=== PATIENT | male | born 1995 | race Caucasian/White ===

== ENCOUNTER 2024-03-15 10:22 | Emergency (ER) | payer OTHER ==
[~2024-03-15] VITALS: Ht 175.3 cm; Wt 83.9 kg
[2024-03-15 10:33] VITALS: BP 113/70; TEMP 98.2
[2024-03-15] MEDS ORDERED: CEPH-570 PO (13:23)
[2024-03-15 13:31] VITALS: O2SAT 99
== END 2024-03-15 13:33 | disposition home or self-care (01) ==
LOC: ER 10:22
DX: S60.457A Superficial foreign body of left little finger, initial encounter (principal); M79.89 Other specified soft tissue disorders; W45.8XXA Other foreign body or object entering through skin, initial encounter; Y93.89 Activity, other specified; Y92.9 Unspecified place or not applicable; Y99.9 Unspecified external cause status